=== PATIENT | male | born 1965 | race Two or more races ===

== ENCOUNTER 2017-05-10 16:03 | Emergency (ER) | payer MEDICAID ==
[~2017-05-10] VITALS: Ht 177.8 cm; Wt 77.1 kg
[2017-05-10] MEDS ORDERED: Haloperidol 5mg/ml Inj IM ONE (16:15)
[2017-05-10] MEDS ORDERED: Bacitracin Oint UD TOPIC ONE (16:15)
[2017-05-10] MEDS ORDERED: HydrOXYzine 25mg tab ORAL ONE (16:15)
--- NOTE | 2017-05-10 16:17 | Emergency Room Report ---
History of Present Illness General Chief Complaint: General Complaint Source: Patient Present Illness HPI This 51-year-old male who presented after increased left-sided a skin rash. Patient had prior history of eczema. Patient had a gradual onset of symptoms. Patient reports having increased worsening of his eczema to his extremities. He reported having moderate itching. The patient been using triamcinolone. He denies any fever. He reports having some pain to the left side of his body. The patient prior history of right-sided weakness after CVA Allergies: Coded Allergies: No Known Allergies (Unverified , 05/10/17) Patient History Past Medical History: see triage record Reviewed Nursing Documentation: PMH: Agreed, PSxH: Agreed Nursing Documentation-PMH Hx Cardiac Problems: No Hx Hypertension: No Hx Pacemaker: No Hx Asthma: Yes Hx Diabetes: No Hx Cerebrovascular Accident: No Review of Systems All Other Systems: negative except mentioned in HPI Physical Exam Vital Signs Date Time Temp Pulse Resp B/P (MAP) Pulse Ox O2 Delivery O2 Flow Rate FiO2 05/10/17 15:56 98.2 94 18 144/72 98 Room Air General Appearance: well appearing, no apparent distress, alert, GCS 15 Head: normocephalic, atraumatic ENT: hearing grossly normal, normal voice Neck: full range of motion, supple Respiratory: no respiratory distress, speaking full sentences Gastrointestinal: normal inspection, normal bowel sounds Musculoskeletal: no calf tenderness, decreased range of mation - right upper extremity Neurologic: alert, oriented x3, normal gait, motor weakness - right sided Psychiatric: mood/affect normal Skin: other - generalized excoriated patches without erythema or discharge Medical Decision Making Diagnostic Impression: Primary Impression: Eczema Additional Impression: CVA, old, monoplegia upper limb ER Course Patient presented for skin rash. Differential diagnosis included was not limited to Rodríguez-Bassam syndrome, urticaria, erythema multiforme, contact dermatitis. Patient's benign exam and does not appear to require any further imaging or laboratory testing at this time. Patient was given oral steroids as well as Atarax.Patient appears to have a flareup of his chronic eczema.The patient's was were dressed with bacitracin. He was given prescription for steroids as well as medications for itching. The patient is advised to follow up with primary care doctor in2-3 days. Patient is advised to return if any worsening condition or if any changes in status that are concerning. Last Vital Signs Date Time Temp Pulse Resp B/P (MAP) Pulse Ox O2 Delivery O2 Flow Rate FiO2 05/10/17 15:56 98.2 94 18 144/72 98 Room Air Status: improved Disposition: HOME, SELF-CARE Condition: Stable Miraz Capone May 10, 2017 16:17
[2017-05-10] MEDS ORDERED: Norco 5mg/325mg tab ORAL ONE (16:30)
[2017-05-10] MEDS ORDERED: Bacitracin Oint 15gm Tube TOPIC ONE (16:30)
[2017-05-10 18:15] VITALS: BP 122/67
[2017-05-10 20:20] VITALS: BP 120/72
== END 2017-05-10 20:25 | disposition home or self-care (01) ==
LOC: EDBD 16:03 → EMR 17:30
DX: L30.9 Dermatitis, unspecified (principal); I69.331 Monoplegia of upper limb following cerebral infarction affecting right dominant side; J45.909 Unspecified asthma, uncomplicated
CPT/HCPCS: 96372; 99284; J1630

== ENCOUNTER 2017-06-26 22:11 | Emergency (ER) | payer MEDICAID ==
[~2017-06-26] VITALS: Ht 185.4 cm; Wt 90.7 kg
[2017-06-26 22:15] VITALS: BP 138/87
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
[2017-06-26] MEDS ORDERED: Norco 5mg/325mg tab ORAL ONE (22:45)
[2017-06-26 23:12] LABS: BASOPHILS % (AUTO) 0.8 % (0.0-2.0); EOSINOPHILS % (AUTO) 5.3 % (0.0-3.0); HEMOGLOBIN 9.6 G/DL (14.2-18.0); LYMPHOCYTES % (AUTO) 23.2 % (20.0-45.0); MEAN CORPUSCULAR VOLUME 79 FL (80-99); MONOCYTES % (AUTO) 10.7 % (1.0-10.0); PLATELET COUNT 459 K/UL (150-450); RED BLOOD COUNT 3.94 M/UL (4.70-6.10); RED CELL DISTRIBUTION WIDTH 18.6 % (11.6-14.8); WHITE BLOOD COUNT 9.4 K/UL (4.8-10.8)
[2017-06-26 23:30] VITALS: BP 128/79
[2017-06-26 23:35] LABS: ANION GAP 9 mmol/L (5-15); BLOOD UREA NITROGEN 15 mg/dL (7-18); CALCIUM 8.5 MG/DL (8.5-10.1); CARBON DIOXIDE 26 MMOL/L (21-32); CHLORIDE 107 MMOL/L (98-107); CREATININE 0.8 MG/DL (0.55-1.30); POTASSIUM 3.8 MMOL/L (3.5-5.1); SODIUM 142 MMOL/L (136-145)
[2017-06-26 23:40] LABS: ALANINE AMINOTRANSFERASE 11 U/L (12-78); ALBUMIN 2.8 G/DL (3.4-5.0); ALBUMIN/GLOBULIN RATIO 0.6 (1.0-2.7); ALKALINE PHOSPHATASE 115 U/L (46-116); ASPARTATE AMINO TRANSFERASE 13 U/L (15-37); BILIRUBIN,TOTAL 0.2 MG/DL (0.2-1.0)
[2017-06-27] MEDS ORDERED: BACTRIM DS TAB1 EAC1 ORAL (01:03)
[2017-06-27 01:50] VITALS: BP 130/84
[2017-06-27 02:00] VITALS: BP 130/84
--- NOTE | 2017-06-27 12:39 | Diagnostic Imaging Report ---
Indication: Pain Technique: 2 views of the right tibia and fibula Comparison: none Findings: Surgical hardware is seen reducing old healed proximal tibial fracture. 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 There is extensive sclerosis and cortical thickening of the mid and distal tibial shaft. There is questionably osseous fusion of the mid fibular and tibial shafts. A surgical screw is seen in the distal tibia. No definite acute fractures. No definite osseous erosions. Screw holes are seen in the mid and distal tibia. No soft tissue foreign body demonstrated. No definite soft tissue gas Impression: Postsurgical changes, as described No definite acute bony trauma Extensive sclerosis of the mid and distal tibial shaft, suspect on the basis of healed prior trauma and/or infection. Superimposed acute indolent infection not completely excludable. No evidence of soft tissue gas This agrees with the preliminary interpretation provided overnight by [facility] teleradiology service.
== END 2017-06-27 02:00 | disposition home or self-care (01) ==
LOC: EDBD 22:11 → EMR 22:20
DX: L97.819 Non-pressure chronic ulcer of other part of right lower leg with unspecified severity (principal); I87.2 Venous insufficiency (chronic) (peripheral); J45.909 Unspecified asthma, uncomplicated
CPT/HCPCS: 36415; 80053; 85025; 99284